=== PATIENT | female | born 1995 | race Caucasian/White ===

== ENCOUNTER 2019-07-25 12:13 | Emergency (ER) | payer SELFPAY ==
[2019-07-25] MEDS ORDERED: Ketorolac Tromethamine 30 MG/ML VIAL ONE (12:46)
--- NOTE | 2019-07-25 13:20 | RAD ---
LEFT HAND 3 VIEWS: Date: 07/25/19 HISTORY: Pain. Injury. Unable to flatten out third digit. FINDINGS: Nondisplaced spiral fracture involving the proximal phalanx. There is associated soft tissue swelling . No obvious interarticular extension. IMPRESSION: Fracture involving proximal phalanx of third digit. Associated soft tissue swelling. POS: [facility]
== END 2019-07-25 13:20 | disposition home or self-care (01) ==
LOC: ERS 12:13
DX: S62.643A Nondisplaced fracture of proximal phalanx of left middle finger, initial encounter for closed fracture (principal); X50.9XXA Other and unspecified overexertion or strenuous movements or postures, initial encounter
CPT/HCPCS: 96372; J1885

== ENCOUNTER 2023-11-25 08:49 | Emergency (ER) | payer BC ==
[2023-11-25] MEDS ORDERED: Ibuprofen 200 MG TAB ONE (09:04)
== END 2023-11-25 09:34 | disposition home or self-care (01) ==
LOC: ERS 08:49
DX: S93.504A Unspecified sprain of right lesser toe(s), initial encounter (principal); S90.121A Contusion of right lesser toe(s) without damage to nail, initial encounter; W18.31XA Fall on same level due to stepping on an object, initial encounter